=== PATIENT | male | born 1975 | race Caucasian/White ===

== ENCOUNTER → 2019-04-26 | Outpatient (CLI) | payer OTHER ==
[~2019-04-26] MED LIST: CHOL500050 PO; OMEP20TA62 PO
[2019-04-26 08:26] LABS: MICROSCOPIC NOT IND
[2019-04-26 08:26] LABS: BASOPHILS # (AUTO) 0.03 x10^3/uL (0-0.1); BASOPHILS % (AUTO) 0 % (0-1); EOSINOPHILS # (AUTO) 0.35 x10^3/uL (0-0.4); EOSINOPHILS % (AUTO) 4 % (1-7); LYMPHOCYTES # (AUTO) 1.67 x10^3/uL (1-3.4); LYMPHOCYTES % (AUTO) 21 % (22-44); MD NO; MEAN CORPUSCULAR HGB CONC 33.3 g/dL (33.2-36.2); MEAN PLATELET VOLUME 8.3 fL (7.4-10.4); MONOCYTES # (AUTO) 0.52 x10^3/uL (0.2-0.8); MONOCYTES % (AUTO) 7 % (2-9); NEUTROPHILS % (AUTO) 68 % (42-75); PLATELET COUNT 312 x10^3/uL (130-400); RED BLOOD COUNT 5.56 x10^6/uL (4.38-5.82); RED CELL DISTRIBUTION WIDTH 13.1 % (9.4-14.8)
[2019-04-26 08:37] LABS: ALANINE AMINOTRANSFERASE 61 U/L (12-78); ALBUMIN 3.8 g/dL (3.4-5.0); ANION GAP 1 mmol/L (5-15); CALCIUM 9.3 mg/dL (8.5-10.1); CHLORIDE 108 mmol/L (98-107); CREATININE 1.11 mg/dL (0.7-1.3)
[2019-04-26 08:39] LABS: ALKALINE PHOSPHATASE 126 U/L (45-117); BILIRUBIN,TOTAL 0.5 mg/dL (0.2-1.0); TOTAL PROTEIN 7.9 g/dL (6.4-8.2)
== END | disposition home or self-care (01) ==
LOC: STAR 07:35
PROVIDERS: ATTEND Urology
DX: N50.89 Other specified disorders of the male genital organs (principal)
CPT/HCPCS: 36415; 80053; 81003; 85025; 87086

== ENCOUNTER 2019-05-10 12:34 | Day surgery (SDC) | payer OTHER ==
[~2019-05-10] VITALS: Ht 182.9 cm; Wt 100.0 kg
[2019-05-10 12:54] VITALS: BP 124/81
[2019-05-10] MEDS ORDERED: LACTATED RINGERS 1,000 ML IV SCH (12:58)
[2019-05-10] MEDS ORDERED: BUPIVACAINE/PF 0.25% ONE (13:42)
[2019-05-10] MEDS ORDERED: FENTANYL PF 250 MCG/5ML ONE (13:50)
[2019-05-10] MEDS ORDERED: MIDAZOLAM 1 MG/ML, 2ML ONE (13:50)
[2019-05-10] MEDS ORDERED: CEFAZOLIN 1,000 MG ONE (14:20)
[2019-05-10] MEDS ORDERED: PROPOFOL 10 MG/ML, 20ML ONE (14:20)
[2019-05-10] MEDS ORDERED: DEXAMETHASONE 4 MG/ML, 1ML ONE (14:20)
[2019-05-10] MEDS ORDERED: LIDOCAINE-MPF 2% ,5ML ONE (14:20)
[2019-05-10] MEDS ORDERED: KETOROLAC 30 MG/1 ML ONE (14:20)
[2019-05-10] MEDS ORDERED: ONDANSETRON 2MG/ML, 2ML ONE (14:20)
[2019-05-10] MEDS ORDERED: MIDAZOLAM 1 MG/ML, 2ML IV PRN (14:30)
[2019-05-10] MEDS ORDERED: HYDROmorphone 2 MG/ML, 1ML IVPush PRN (14:30)
[2019-05-10] MEDS ORDERED: PROMETHAZINE 25 MG SUPP PR PRN (14:30)
[2019-05-10] MEDS ORDERED: ONDANSETRON 2MG/ML, 2ML IV PRN (14:30)
[2019-05-10] MEDS ORDERED: ONDANSETRON ODT 8 MG PO PRN (14:30)
[2019-05-10] MEDS ORDERED: FENTANYL PF 100 MCG/2ML IV PRN (14:30)
[2019-05-10] MEDS ORDERED: OXYcodone 5 MG/5 ML ORAL.SOL UDC PO PRN (14:30)
[2019-05-10] MEDS ORDERED: ACETAMINOPHEN 325 MG TABLET PO PRN (14:30)
[2019-05-10] MEDS ORDERED: BUPIVACAINE/PF 0.25% INFIL ONE (14:57)
[2019-05-10] MEDS ORDERED: ACETAMINOPHEN 650 MG/20.3 ML UDC ONE (15:54)
[2019-05-10] MEDS ORDERED: FENTANYL PF 100 MCG/2ML ONE (15:54)
[2019-05-10] MEDS ORDERED: OXYcodone 5 MG/5 ML ORAL.SOL UDC ONE (15:54)
== END 2019-05-10 17:50 | disposition home or self-care (01) ==
LOC: OUT 12:34
PROVIDERS: ATTEND Urology
DX: N50.89 Other specified disorders of the male genital organs (principal); D29.22 Benign neoplasm of left testis; Z79.899 Other long term (current) drug therapy
CPT/HCPCS: 54522; 88307; 88331; J0690; J1100; J1885; J2250; J2405; J2704; J3010; J3490; J7120